=== PATIENT | male | born 1980 | race Caucasian/White ===

== ENCOUNTER 2023-03-18 08:05 | Day surgery (SDC) | payer OTHER, SELFPAY ==
[2023-02-26 09:15] VITALS: BMI 26.0
--- NOTE | 2023-03-15 14:57 | P.PNAN_ITS ---
Anes - Initial Pre Proc Eval Procedure: Operation Date: 03/18/23 10:00 Proposed Procedures p Diagnostic Colonoscopy - Samir Renee MD Date/Time: 03/15/23 14:57 Surgeon: Samir Renee MD Pre Op Diagnosis: Ulcerative Colitis, HX Colon Polyps Patient Data Age: 42 Gender: M Height: 1.75 m Weight: 80 kg Allergies Allergy/AdvReac Type Severity Reaction Status Date / Time No Known Allergies Allergy Verified 03/18/23 08:48 Home Medications Medication Instructions Recorded Confirmed Type acetaminophen 325 mg capsule 325 mg PO Q6H PRN Pain, Moderate 01/02/23 03/18/23 History dapagliflozin propanediol 10 mg 10 mg PO DAILY 01/02/23 03/18/23 History tablet doxylamine succinate 25 mg tablet 25 mg PO QHS PRN Sexual Activity 01/02/23 03/18/23 History lisinopril 10 mg tablet 10 mg PO DAILY 01/02/23 03/18/23 History metoprolol succinate 25 mg 25 mg PO DAILY 01/02/23 03/18/23 History tablet,extended release 24 hr sildenafil 25 mg tablet 25 mg PO DAILY PRN sexual activity 01/02/23 03/18/23 History sodium,potassium,mag sulfates 17.5 See Rx Instructions PO .COMPLEX 01/03/23 03/18/23 Rx gram-3.13 gram-1.6 gram oral soln #354 mL (Suprep Bowel Prep Kit) mesalamine 1.2 gram tablet,delayed 4.8 g PO DAILY 8 weeks #120 tabs 02/11/23 0 03/18/23 Rx release (Lialda) prednisone 5 mg tablet 5 mg PO DIRECTED #30 tabs 02/11/23 02/26/23 Rx Patient hx anesthesia problems: none Family hx anesthesia problems: none Results Review: All pre-operative results and documents have been reviewed as part of the pre- operative evaluation. [facility] Past Medical History Medical History (Updated 03/15/23 @ 14:58 by Arnol Latif MD) History of colon polyps HTN (hypertension) Hyperlipidemia EVELYN (obstructive sleep apnea) Ulcerative colitis Family History Family History Father Malignant neoplasm of prostate Grandparent Malignant neoplasm of prostate Social History Social History Smoking status: Never smoker Alcohol intake: current Drinks per week: 2 Substance use: never Substance use type: does not use Living arrangements: with family Spiritual care concerns: No Anes - Eval Final PreProcedure Day of Procedure 03/15/23 14:57 Patient weight: overweight Heart: regular rate and rhythm Lungs: clear to auscultation and normal air movement Airway: Mallampati scale class II Neurological: alert and oriented Last oral intake: >/= 8 hours ASA classification: III Emergent: no Anesthetic plan: proceed Anesthesia type and monitoring: general GIVS Results Review: All pre-operative results and documents have been reviewed as part of the pre- operative evaluation. Informed Consent: The patient's anesthetic plan and its attendant risks and benefits were discussed with the patient/family/POA. Questions were solicited and answers provided to the satisfaction of the patient/family/POA.
[2023-03-18 08:51] VITALS: BP 107/70; PULSE 83; RESP 16; TEMP 36.8; O2SAT 100
[2023-03-18] MEDS: LACTATED RINGERS 1,000 ML 150 ML IV CONT (09:01)
--- NOTE | 2023-03-18 09:04 | PM.HPGS ---
History of Present Illness History of Present Illness Consent: Risks, benefits, and alternatives have been discussed and questions answered. Patient agrees to proceed with procedure. Chief complaint: Ulcerative Colitis, HX Colon Polyps Narrative: Markell Farfan is a 42 year old male Presents for screening colonoscopy. Patient has a history of left-sided ulcerative colitis diagnosed in 2007. He has done well currently maintained on Lialda. In January he had a flare of disease with diarrhea in mild bleeding. Patient was given a brief trial of prednisone and his dose of Lialda was increased to4.8g p.o. daily. Patient currently denies abdominal pain his bowel habits returned to normal. He feels good. On previous colonoscopy in 2018 he had a benign adenomatous colon polyp family history is noncontributory. Patient presents today for screening exam. Review of Systems Review of Systems: Review of systems noncontributory. [facility] Past Medical History Medical History (Updated 03/15/23 @ 14:58 by Arnol Latif MD) History of colon polyps HTN (hypertension) Hyperlipidemia EVELYN (obstructive sleep apnea) Ulcerative colitis Family History Family History Father Malignant neoplasm of prostate Grandparent Malignant neoplasm of prostate Social History Social History Smoking status: Never smoker Alcohol intake: current Drinks per week: 2 Substance use: never Substance use type: does not use Living arrangements: with family Spiritual care concerns: No Meds Home Medications and Allergies Home Medications Medication Instructions Recorded Confirmed Type acetaminophen 325 mg capsule 325 mg PO Q6H PRN Pain, Moderate 01/02/23 03/18/23 History dapagliflozin propanediol 10 mg 10 mg PO DAILY 01/02/23 03/18/23 History tablet doxylamine succinate 25 mg tablet 25 mg PO QHS PRN Sexual Activity 01/02/23 03/18/23 History lisinopril 10 mg tablet 10 mg PO DAILY 01/02/23 03/18/23 History metoprolol succinate 25 mg 25 mg PO DAILY 01/02/23 03/18/23 History tablet,extended release 24 hr sildenafil 25 mg tablet 25 mg PO DAILY PRN sexual activity 01/02/23 03/18/23 History sodium,potassium,mag sulfates 17.5 See Rx Instructions PO .COMPLEX 01/03/23 03/18/23 Rx gram-3.13 gram-1.6 gram oral soln #354 mL (Suprep Bowel Prep Kit) mesalamine 1.2 gram tablet,delayed 4.8 g PO DAILY 8 weeks #120 tabs 02/11/23 03/18/23 Rx release (Lialda) prednisone 5 mg tablet 5 mg PO DIRECTED #30 tabs 02/11/23 02/26/23 Rx Allergies Allergy/AdvReac Type Severity Reaction Status Date / Time No Known Allergies Allergy Verified 03/18/23 08:48 Vital Signs Vital Signs - 24 hr 03/18/23 08:51 Temperature 98.3 F Pulse Rate 83 Respiratory Rate 16 Blood Pressure 107/70 Pulse Oximetry 100 Oxygen Delivery Room Air Exam Narrative: Physical exam reveals patient to be alert. Vital signs stable. HEENT exam is unremarkable. Patient is anicteric. Lungs are clear to auscultation and percussion. Heart is without murmur or extra sounds. Abdomen bowel sounds are present soft nontender with no organomegaly. Digital external rectal exam normal. Assessment and Plan Assessment and plan (1) Ulcerative colitis: Code(s): K51.90 - Ulcerative colitis, unspecified, without complications Status: Acute Assessment and Plan: Patient has a history of left-sided ulcerative colitis diagnosed in 2007. Plan for surveillance colonoscopy now and consider this at intervals in the future. Currently maintained on Lialda 4.8g p.o. daily when this has gone into remission we may be able to decrease dose to2.4g p.o. daily ultimately. Colonoscopy to be performed today. (2) History of colon polyps: Code(s): Z86.010 - Personal history of colonic polyps Status: Acute Assessment and Antoine
[2023-03-18 10:22] VITALS: BP 82/63; PULSE 88; RESP 16; O2SAT 100
[2023-03-18 10:32] VITALS: BP 99/70; PULSE 74; RESP 16; O2SAT 100
[2023-03-18 10:42] VITALS: BP 105/76; PULSE 73; RESP 16; O2SAT 100
--- NOTE | 2023-03-18 14:21 | WPDANESPN ---
Anes - Prog Note Post-Op Date/Time: 03/18/23 14:21 Cardiovascular status: normal Respiratory status: normal Airway patency: baseline Mental status: baseline Post-Op hydration status: normal Vital Signs: Last Vital Signs Temp 36.8 C 03/18/23 08:51 Pulse 73 03/18/23 10:42 Resp 16 03/18/23 10:42 BP 105/76 03/18/23 10:42 Pulse Ox 100 03/18/23 10:42 O2 Del Method Room Air 03/18/23 10:42 Pain Score (VAS): 0 I/O: Intake & Output 03/17/23 03/18/23 03/18/23 23:59 07:59 15:59 Intake Total 900 Balance 900 Post-procedural complaints: none Patient Feedback: Patient satisfied with anesthetic care.
== END 2023-03-18 10:50 | disposition home or self-care (01) ==
PROVIDERS: Visit Provider Internal Medicine Gastroenterology
PROC: 0DJD8ZZ Inspection of Lower Intestinal Tract, Via Natural or Artificial Opening Endoscopic (ICD-10-PCS; CPT 45378; principal; 2023-03-18 10:00)
DX: K51.90 Ulcerative colitis, unspecified, without complications (principal)
CPT/HCPCS: 45380

== ENCOUNTER 2023-03-18 08:42 | Outpatient (NON) | payer OTHER, SELFPAY | END 2023-03-18 08:43 | disposition home or self-care (01) | LOC: ANHLAB 03-19 08:43 | PROVIDERS: Visit Provider Internal Medicine Gastroenterology | DX: K51.90 Ulcerative colitis, unspecified, without complications (principal) | CPT/HCPCS: 88305 ==

== ENCOUNTER 2025-07-08 16:36 | Outpatient (CLI) | payer OTHER, SELFPAY ==
[2025-07-08 17:19] LABS: Hematocrit 45.7 % (42.0-52.0); Hemoglobin 15.5 g/dL (14.0-18.0); Mean Corpuscular HGB Conc 33.9 g/dl (32-36); Mean Corpuscular Hemoglobin 29.5 pg (26-34); Mean Corpuscular Volume 87.0 fl (80-100); Platelet Count Result 285 k/mm3 (150-375); Red Blood Count 5.25 M/mm3 (4.6-6.20); White Blood Count 6.7 K/mm3 (4.5-10.0)
[2025-07-08 17:31] LABS: INR 1.0; Prothrombin Time 13.2 Seconds (11.1-14.7)
[2025-07-08 17:32] LABS: Alanine Aminotransferase 176 U/L (6-50); Albumin Level 4.7 g/dL (3.5-5.1); Alkaline Phosphatase 144 U/L (38-126); Anion Gap 9 mmol/L (4-12); Aspartate Amino Transferase 88 U/L (17-59); Bilirubin,Total 0.8 mg/dL (0.2-1.3); Blood Urea Nitrogen 21 mg/dL (9-20); CRP 0.6 mg/dL (<1.0); Calcium 9.4 mg/dL (8.4-10.2); Carbon Dioxide 26 mmol/L (22-30); Chloride 100 mmol/L (98-107); Estimated Glomerular Filt Rate > 60; Glucose 92 mg/dL (65-110); Potassium 4.0 mmol/L (3.4-5.0); Sodium 135 mmol/L (137-145); Total Protein 8.3 g/dL (6.3-8.2)
[2025-07-08 17:37] LABS: Iron 102 ug/dL (49-181)
[2025-07-08 17:46] LABS: Percent Iron Saturation 33 % (20-50)
[2025-07-08 18:18] LABS: Ferritin 151.00 ng/mL (17.9-464)
[2025-07-09 10:08] LABS: GGT 431 IU/L (0-65)
[2025-07-13 09:08] LABS: ANA by IFA Rfx Titer/Pattern Negative (.)
== END 2025-07-08 16:37 | disposition home or self-care (01) ==
PROVIDERS: Visit Provider Nurse Practitioner Family
DX: R79.89 Other specified abnormal findings of blood chemistry (principal)
CPT/HCPCS: 36415; 80053; 82390; 82728; 82977; 83540; 83550; 83915; 85027; 85610; 85652; 86015; 86038; 86140; 86376; 86381